=== PATIENT | male | born 1990 | race Caucasian/White ===

== ENCOUNTER 2017-02-21 19:20 | Emergency (ER) | payer OTHER | END 2017-02-21 21:20 | disposition home or self-care (01) | LOC: FER 19:20 | DX: R11.10 Vomiting, unspecified (principal); K21.9 Gastro-esophageal reflux disease without esophagitis; J45.909 Unspecified asthma, uncomplicated; Z87.442 Personal history of urinary calculi | CPT/HCPCS: 99283 ==

== ENCOUNTER 2022-02-02 02:02 | Emergency (ER) | payer OTHER ==
[2022-02-02 02:44] LABS: BASOPHIL 0.3 % (0-2); EOSINOPHIL 0.6 % (0-5); HCT 45.7 % (42.0-52.0); HGB 15.2 g/dl (13.2-18.0); LYMPHOCYTE 20.2 % (15-48); MCH 29.3 pg (25.0-31.0); MCHC 33.3 g/dL (32.0-36.0); MCV 88.2 fL (78.0-100.0); MONOCYTE 5.1 % (0-12); MPV 10.5 fL (6.0-9.5); NEUTROPHIL 73.5 % (41-80); NRBC 0; PLT 257 K/uL (150-400); RBC 5.18 M/uL (4.70-6.00); RDW 12.2 % (11.5-14.0); WBC 13.1 K/uL (4.0-10.5)
[2022-02-02 02:55] LABS: ALBUMIN 4.5 g/dL (3.4-5.0); BILIRUBIN - TOTAL 0.5 mg/dL (0.2-1.0); BUN/CREAT RATIO (CALC) 18.6 RATIO; CREATININE 0.97 mg/dL (0.67-1.17); GLOBULIN (CALCULATION) 3.7 g/dL; POTASSIUM 3.6 mmol/L (3.5-5.1); TOTAL PROTEIN 8.2 g/dL (6.4-8.2)
[2022-02-02] MEDS ORDERED: FLOMAX 0.4 MG0.4 MG PO (04:21)
[2022-02-02] MEDS ORDERED: NORCO 5-325 TA1 EACH PO (04:21)
[2022-02-02] MEDS ORDERED: ONDANSETRON ODT4 MG PO (04:21)
[2022-02-02 04:26] LABS: BILIRUBIN NEGATIVE (NEGATIVE); BLOOD 3+ Ery/uL (NEGATIVE); CLARITY CLEAR (CLEAR); COLOR YELLOW (YELLOW); GLUCOSE (U) NORMAL (NORMAL); LEUKOCYTES NEGATIVE Leu/uL (NEGATIVE); NITRITE NEGATIVE (NEGATIVE); PROTEIN 1+ mg/dL (NEGATIVE); SPECIFIC GRAVITY 1.025 (1.001-1.030); UROBILINOGEN 0.2 mg/dL (0.2-1.0); pH 6.5 (5.0-9.0)
[2022-02-02 04:46] LABS: BACTERIA 1+; URINARY RBC 20-50
[2022-02-02 04:47] LABS: YEAST PRESENT
== END 2022-02-02 04:38 | disposition home or self-care (01) ==
LOC: FER 02:02
PROVIDERS: Emergency Medicine
DX: N13.2 Hydronephrosis with renal and ureteral calculous obstruction (principal); N13.0 Hydronephrosis with ureteropelvic junction obstruction; Z87.442 Personal history of urinary calculi
CPT/HCPCS: 36415; 80053; 81001; 85025; J1170; J1885; J7030